=== PATIENT | male | born 1970 | race Caucasian/White ===

== ENCOUNTER 2019-07-06 22:05 | Emergency (ER) | payer OTHER ==
--- NOTE | 2019-07-06 23:00 | ED Physician Documentation ---
History of Present Illness - Stated complaint Stated Complaint: R LEG SWELLING/PX - Chief complaint Chief Complaint: Ext Problem - History obtained from History obtained from: Patient - History of Present Illness Timing: How many days ago (2) Pain level now: 7 Improved by: rest Worsened by: movement, palpation - Additonal information Additional information: c/o 2 days of atraumatic RLE swelling, tenderness. denies h/o similar symptoms. Flew to [place] from [place] 5 days ago. denies CP, dyspnea Review of Systems Constitutional: denies: Fever, Chills, Sweats Cardiac: reports: Reviewed and negative Respiratory: reports: Reviewed and negative Musculoskeletal: reports: Extremity pain, Extremity swelling. denies: Pain with weight bearing Neurologic: denies: Focal weakness, Numbness PD PAST MEDICAL HISTORY - Past Medical History Past Medical History: Yes Cardiovascular: Hypertension, High cholesterol - Past Surgical History Past Surgical History: No - Present Medications Home Medications: Ambulatory Orders Medication Instructions Recorded Confirmed Fenofibrate Nanocrystallized 145 mg PO DAILY 07/07/19 07/07/19 [Fenofibrate] Hydrocodone/Acetaminophen 1 - 2 each PO Q6HR PRN #20 tablet 07/07/19 [Hydrocodone-Acetamin 5-325 mg] Lisinopril 1 tab PO DAILY 07/07/19 07/07/19 Pravastatin Sodium 1 tab PO DAILY 07/07/19 07/07/19 Rivaroxaban [Xarelto] 10 mg PO DAILY #30 tablet 07/07/19 hydroCHLOROthiazide 1 tab PO DAILY 07/07/19 07/07/19 [Hydrochlorothiazide] - Allergies Allergies/Adverse Reactions: Allergies Allergy/AdvReac Type Severity Reaction Status Date / Time Penicillins Allergy Edema Verified 07/06/19 22:18 - Social History Does the pt smoke?: No Smoking Status: Never smoker Does the pt drink ETOH?: Yes Does the pt have substance abuse?: No - Immunizations Immunizations are current?: Yes - POLST Patient has POLST: No PD ED PE NORMAL - Vitals Vital signs reviewed: Yes - General General: Alert and oriented X 3, No acute distress, Well developed/nourished - Cardiac Cardiac: RRR, No murmur - Respiratory Respiratory: No respiratory distress, Clear bilaterally PD ED PE EXPANDED - Extremities DARY LE visual: 1 - swelling (swelling with faint, poorly-marginated erythema and mildly increased warmth to touch (compared to other leg)) Results - Vitals Vitals: Vital Signs - 24 hr 07/06/19 07/07/19 07/07/19 22:15 00:10 01:59 Temperature 36.8 C 36.7 C 36.6 C Heart Rate 97 84 80 Respiratory 16 16 18 Rate Blood Pressure 124/85 H 136/83 H 124/88 H O2 Saturation 97 99 97 Oxygen O2 Source Room air - Labs Labs: Laboratory Tests 07/06/19 07/06/19 07/06/19 23:25 23:25 23:25 WBC 6.8 RBC 4.21 L Hgb 12.4 L Hct 34.7 L MCV 82.4 MCH 29.5 MCHC 35.7 RDW 12.5 Plt Count 268 MPV 8.7 Neut # (Auto) 3.8 Lymph # (Auto) 1.9 [place] # (Auto) 0.8 Eos # (Auto) 0.2 Baso # (Auto) 0.1 Absolute Nucleated RBC 0.00 Nucleated RBC % 0.0 PT 12.0 INR 1.1 APTT 29.8 Sodium 132 L Potassium 3.6 Chloride 97 L Carbon Dioxide 23 Anion Gap 12.0 BUN 13 Creatinine 0.9 Estimated GFR (MDRD) 90 Glucose 116 H Calcium 8.9 - Rads (name of study) RLE US Radiology: Prelim report reviewed, See rad report PD MEDICAL DECISION MAKING - ED course Complexity details: reviewed results, re-evaluated patient, considered differential, d/w patient Departure - Departure Disposition: 01 Home, Self Care Clinical Impression: Superficial thrombophlebitis Condition: Good Instructions: ED Phlebitis Superficial Prescriptions: Hydrocodone/Acetaminophen [Hydrocodone-Acetamin 5-325 mg] 1 - 2 each PO Q6HR PRN #20 tablet PRN Reason: Pain Rivaroxaban [Xarelto] 10 mg PO DAILY #30 tablet Comments: Follow up with your primary care provider, next available appointment Discharge Date/Time: 07/07/19 02:24
[2019-07-06 23:30] LABS: BASOPHILS # (AUTO) 0.1 10^3/uL (0.0-0.1); EOSINOPHILS # (AUTO) 0.2 10^3/uL (0.0-0.7); EOSINOPHILS % (AUTO) 2.9 %; HGB - HEMOGLOBIN 12.4 g/dL (14.0-18.0); LYMPHOCYTES # (AUTO) 1.9 10^3/uL (1.5-3.5); LYMPHOCYTES % (AUTO) 27.9 %; MEAN CORPUSCULAR HEMOGLOBIN 29.5 pg (27.0-31.0); MEAN CORPUSCULAR HGB CONC 35.7 g/dL (32.0-36.0); MEAN CORPUSCULAR VOLUME 82.4 fL (80.0-94.0); MEAN PLATELET VOLUME 8.7 fL (7.4-11.4); MONOCYTES # (AUTO) 0.8 10^3/uL (0.0-1.0); MONOCYTES % (AUTO) 11.1 %; NEUTROPHILS # (AUTO) 3.8 10^3/uL (1.5-6.6); NEUTROPHILS % (AUTO) 56.5 %; PLT - PLATELET COUNT 268 10^3/uL (130-450); RED BLOOD COUNT 4.21 10^6/uL (4.70-6.10); RED CELL DISTRIBUTION WIDTH 12.5 % (12.0-15.0); WHITE BLOOD COUNT 6.8 x10^3/uL (4.8-10.8)
[2019-07-06 23:40] LABS: CALCIUM 8.9 mg/dL (8.5-10.3); CREATININE 0.9 mg/dL (0.6-1.2)
[2019-07-06 23:45] LABS: INR 1.1 (0.8-1.2)
[2019-07-06 23:52] LABS: PARTIAL THROMBOPLASTIN TIME 29.8 secs (24.9-33.3)
--- NOTE | 2019-07-07 01:32 | Ultrasound Report ---
Reason: atraumatic RLE swelling, pain Procedure Date: 07/07/2019 Accession Number: [id number] / [id number] Procedure: US - Duplex Ext Veins Right CPT Code: FULL RESULT: EXAM: RIGHT LOWER EXTREMITY VENOUS ULTRASOUND EXAM DATE: 07/07/2019 01:00 AM. CLINICAL HISTORY: Atraumatic right lower extremity swelling and pain. COMPARISON: None. TECHNIQUE: Real-time sonographic vascular imaging was performed by the certified technician specialist through the lower extremity utilizing both color-flow and Doppler spectral analysis. Multiple cash applications representative static images were saved for review. FINDINGS: Common Femoral Vein (CFV): Normal. CFV-GSV Junction: Normal. Profunda Femoral Vein (PFV): Normal. Femoral Vein (FV) Prox: Normal. Femoral Vein (FV) Mid: Normal. Femoral Vein (FV) Dist: Normal. Popliteal Vein: Normal. Posterior Tibial Veins: Normal. Peroneal Veins: Normal. Contralateral Side CFV: Normal. Other: Superficial venous thrombosis of the greater saphenous vein is noted, from the proximal/midportion extending distally. There is nonocclusive acute appearing thrombus at this location. This portion of the vessel is noncompressible. This corresponds to the patient area of pain. IMPRESSION: 1. Superficial venous thrombosis of the greater saphenous vein exiting from the proximal to midportion distally. Coupled with patient's symptoms, findings are worrisome for superficial thrombus phlebitis. 2. No evidence of deep venous thrombosis demonstrated. RADIA
[2019-07-07 02:00] VITALS: BP 124/88
[2019-07-07] MEDS ORDERED: RIVAROXABAN 10 MG TABLET PO STA (02:11)
[2019-07-07] MEDS ORDERED: HYDROcod/ACETAM 5/325 MG TABLET PO STA (02:11)
--- NOTE | 2019-07-07 13:23 | ED Physician Documentation ---
ED Addendum - Addendum Addendum: 07/07/19 13:22 Insurance does not cover xarelto, changed to eliquis. 10mg PO BID x 7 days and then 5mg PO BID. 2 weeks worth given.
== END 2019-07-07 02:24 | disposition home or self-care (01) ==
LOC: ED 22:05
DX: I80.01 Phlebitis and thrombophlebitis of superficial vessels of right lower extremity (principal); I10 Essential (primary) hypertension
CPT/HCPCS: 36415; 80048; 85025; 85610; 85730; 93971; 99283; 99284; A9270